=== PATIENT | male | born 1945 | race Caucasian/White ===

== ENCOUNTER 2019-01-11 12:53 | Emergency (ER) | payer MEDICARE, OTHER ==
[~2019-01-11] VITALS: Ht 180.3 cm; Wt 66.7 kg
--- OUTSIDE RECORDS SUMMARY | ~2019-01-11 | XMS | Encounter Summary ---
Demographics + + + | Address | [address] | | | [place] [address] | + + + | Home Phone | | + + + | Preferred Language | Unknown | + + + | Marital Status | | + + + | Spiritism Affiliation | Unknown | + + + | Race | Unknown | + + + | Ethnic Group | Unknown | + + + Author + + + | Author | [facility] | | | and Jaironana | + + + | Organization | [facility] | | | and [place] | + + + | Address | Unknown | + + + | Phone | Unavailable | + + + Support + + +---------+ + | Name | Relationship | Address | Phone | + + +---------+ + | Message Detailed | ECON | Unknown | | + + +---------+ + Care Team Providers + +------+ + | Care Piano Refinisher Name | Role | Phone | + +------+ + PCP | Unavailable | + +------+ + Encounter Details +--------+ + + + + | Date | Type | Department | Care Team | Description | +--------+ + + + + | 12/23/ | Hospital | [facility] [place] IP | Conversion | Pain | | 2015 | Encounter | CONVERSION DEP [address] | Transaction, | | | | | [address] | Provider Unknown | | | | | [place] | | | | | | [phone] | (Fax) | | | | | [phone] | | | +--------+ + + + + Social History + +-------+ +--------+------+ | Tobacco Use | Types | Packs/Day | Years | Date | | | | | Used | | + +-------+ +--------+------+ | Never Assessed | | | | | + +-------+ +--------+------+ + + + | Sex Assigned at | Date Recorded | | | | + + + | Not on file | | + + + + + + + | Job Start Date | Occupation | Industry | + + + + | Not on file | Not on file | Not on file | + + + + + + + + | Travel History | Travel Start | Travel End | + + + + + + | No recent travel history available. | + + documented as of this encounter Plan of Treatment Not on filedocumented as of this encounter Procedures + +--------+ + + + | Procedure Name | Priori | Date/Time | Associated Diagnosis | Comments | | | ty | | | | + +--------+ + + + | MRI LUMBAR SPINE WO | Routin | 12/16/2014 | | Results for this | | CONTRAST | e | 10:18 PM | | procedure are in the | | | | PST | | results section. | + +--------+ + + + documented in this encounter Results MRI Lumbar Spine wo Contrast (12/16/2014 10:18 PM PST) + + | Specimen | + + | | + + + + + | Narrative | Performed At | + + + | This is a non-reportable procedure without a radiologist report and | | | is used for image storage only | | + + + + + | Procedure Note | + + | Telly De Loc - 09/27/2018 11:27 AM PDT This is a non-reportable procedure | | without a radiologist report and isused for image storage only | + + documented in this encounter Visit Diagnoses + + | Diagnosis | + + | Pain Generalized pain | + + documented in this encounter"
--- OUTSIDE RECORDS SUMMARY | ~2019-01-11 | XMS | Encounter Summary ---
Demographics + + + | Address | [address] | | | [place] [address] | + + + | Home Phone | | + + + | Preferred Language | Unknown | + + + | Marital Status | | + + + | Baptism Affiliation | Unknown | + + + | Race | Unknown | + + + | Ethnic Group | Unknown | + + + Author + + + | Author | [facility] | | | and Jaironana | + + + | Organization | [facility] | | | and Jaironana [...] Team Providers + +------+ + | Care Locomotive Firer/Fireman Name | Role | Phone | + +------+ + PCP | Unavailable | + +------+ + Encounter Details +--------+ + + + + | Date | Type | Department | Care Team | Description | +--------+ + + + + | 12/23/ | Hospital | [facility] GENER[facility] IP | Conversion | Pain | | 2015 | Encounter | CONVERSION DEP 888 | Transaction, | | | | | [address] | Provider Unknown | | | | | [place] | | | | | | [phone] | (Fax) | | | | | [phone] | | | +--------+ + + + [...]
--- OUTSIDE RECORDS SUMMARY | ~2019-01-11 | XMS | Clinical Summary ---
Demographics + + + | Address | [address] | | | [place] [address] | + + + | Home Phone | | + + + | Preferred Language | Unknown | + + + | Marital Status | | + + + | Latter-Day Affiliation | Unknown | + + + | Race | Unknown | + + + | Ethnic Group | Unknown | + + + Author + + + | Author | [facility] | | | and Jaironana | + + + | Organization | [facility] | | | and Jaironana | [...] Team Providers + +------+ + | Care Hyperion Administrator Name | Role | Phone | + +------+ + | Bong Hernández MD | PCP | | + +------+ + Allergies Not on File Medications Not on file Active Problems Not on file Social History + +-------+ +--------+------+ | Tobacco Use | Types | Packs/Day | Years | Date | | | | | Used | | + +-------+ +--------+------+ | Current Every Day | | | | | | Smoker | | | | | + +-------+ [...] recent travel history available. | + + Last Filed Vital Signs Not on file Plan of Treatment + + + + + | Health Maintenance | Due Date | Last Done | Comments | + + + + + | Vaccine: | | | | | Dtap/Tdap/Td (1 - | 4 | | | | Tdap) | | | | + + + + + | Vaccine: Zoster (1 | | | | | of 2) | 5 | | | + + + + + | Vaccine: | | | | | Pneumococcal 65+ (1 | 0 | | | | of 2 - PCV13) | | | | + + + + + | Vaccine: Influenza | | | | | (#1) | 9 | | | + + + + + Results Not on filefrom Last 3 Months"
--- OUTSIDE RECORDS SUMMARY | ~2019-01-11 | XMS | Clinical Summary ---
Demographics + + + | Address | [address] | | | [place] [address] | + + + | Home Phone | | + + + | Preferred Language | Unknown | + + + | Marital Status | | + + + | Mu-Ism Affiliation | Unknown | + + + | Race | Unknown | + + + | Ethnic Group | Unknown | + + + Author + + + | Author | [facility] [employer] (Historical as of | | | 09-28-18) | + + + | Organization | [facility] [employer] (Historical as of | | | 09-28-18) | + + + | Address | Unknown | + + + | Phone | Unavailable | + + + Support + + +---------+ + | Name | Relationship | Address | Phone | + + +---------+ + | Detailed,Message | ECON | Unknown | | + + +---------+ + | Layne Rivero | ECON | Unknown | | + + +---------+ + Care Team Providers + +------+ + | Care Clinical Physician Assistant Name | Role | Phone | + +------+ + | Bong Hernández MD | PP | | + +------+ + Allergies No Known Allergies Current Medications + + +-------+---------+------+------+-------+ | Prescription | Sig. | Disp. | Refills | Star | End | Statu | | | | | | t | Date | s | | | | | | Date | | | + + +-------+---------+------+------+-------+ | gabapentin | Take 100 mg by mouth | | | | | Activ | | (NEURONTIN) 100 MG | 2 (two) times | | | | | e | | capsule | daily. | | | | | | + + +-------+---------+------+------+-------+ | | Take 1 tablet by | | | | | Activ | | HYDROcodone-acetamin | mouth every 6 (six) | | | | | e | | ophen (NORCO) 10-325 | hours as needed for | | | | | | | MG per tablet | Pain. | | | | | | + + +-------+---------+------+------+-------+ Active Problems No known active problems Social History + +-------+ +--------+------+ | Tobacco Use | Types | Packs/Day | Years | Date | | | | | Used | | + +-------+ +--------+------+ | Current Every Day | | | | | | Smoker | | | | | + +-------+ +--------+------+ + + +---------+ + | Alcohol Use | Drinks/We | oz/Week | Comments | | | ek | | | + + +---------+ + | Yes | 0 | 0.0 | | | | Standard | | | | | drinks or | | | | | | | | | | equivalen | | | | | t | | | + + +---------+ + + + + | Sex Assigned at | Date Recorded | | | | + + + | Not on file | | + + + Last Filed Vital Signs + + + + | Vital Sign | Reading | Time Taken | + + + + | Blood Pressure | 155/87 | 01/14/2015 7:35 AM PST | + + + + | Pulse | 69 | 01/14/2015 7:35 AM PST | + + + + | Temperature | - | - | + + + + | Respiratory Rate | - | - | + + + + | Oxygen Saturation | 97% | 01/14/2015 7:35 AM PST | + + + + | Inhaled Oxygen | - | - | | Concentration | | | + + + + | Weight | 72.6 kg (160 lb) | 01/14/2015 7:35 AM PST | + + + + | Height | 180.3 cm (5' 11") | 01/14/2015 7:35 AM PST | + + + + | Body Mass Index | 22.32 | 01/14/2015 7:35 AM PST | + + + + Plan of Treatment + + + + [...] | | | | | Pneumococcal 65+ | 0 | | | | Low/Medium Risk (1 | | | | | of 2 - PCV13) | | | | + + + + + | Vaccine: Influenza | | | | | (#1) | 9 | | | + + + + + Results Not on filefrom Last 3 Months Insurance + +--------+ +------+-------+ + | Payer | Benefi | Subscriber | Type | Phone | Address | | | t Plan | ID | | | | | | / | | | | | | | Group | | | | | + +--------+ +------+-------+ + | MEDICARE | MEDICA | [id number] | | | [address] | | | RE | | | | [place] [id number] | | | IP-OP | | | | | + +--------+ +------+-------+ + + +--------+ +--------+ + + | Guarantor Name | Accoun | Relation to | Date | Phone | Billing Address | | | t Type | Patient | of | | | | | | | | | | + +--------+ +--------+ + + | CECILIO RIVERO | Person | Self | [birth year] | Home: | [address] | | | al/Fam | | 1946 | [phone] | [place] [address] | | | katia | | | [phone] | | + +--------+ +--------+ + +
--- OUTSIDE RECORDS SUMMARY | ~2019-01-11 | XMS | Clinical Summary ---
Demographics + + + | Address | [address] | | | [place] [address] | + + + | Home Phone | | + + + | Preferred Language | Unknown | + + + | Marital Status | | + + + | Evangelical Affiliation | Unknown | + + + | Race | Unknown | + + + | Ethnic Group | Unknown | + + + Author + + + | Author | [facility] [employer] (Historical as of | | | 09-28-18) | + + + | Organization | [facility] [employer] (Historical as of | | | 09-28-18) [...] Team Providers + +------+ + | Care Nursery Teacher Name | Role | Phone | + [...] +------+-------+ + | MEDICARE | MEDICA | [id number] | | | [address] | | | RE | | | | [place] [phone] | | | IP-OP | | | [...] Self | [birth year] | Home: | [address] | | | al/Fam | | 1946 | [phone] | [place] [address] | | | katia | | | [phone] | | + +--------+ +--------+ + +
--- OUTSIDE RECORDS SUMMARY | ~2019-01-11 | XMS | Clinical Summary ---
Demographics + + + | Address | [address] | | | [place] [address] | + + + | Home Phone | | + + + | Preferred Language | Unknown | + + + | Marital Status | | + + + | Nondenominational Affiliation | Unknown | + + + | Race | Unknown | + + + | Ethnic Group | Unknown | + + + Author + + + | Author | [facility] | | | and Jaironana | + + + | Organization | [facility] | | | and Jair[place]ana | [...] Team Providers + +------+ + | Care Retail Chain Store Area Supervisor Name | Role | Phone | + [...]
== END 2019-01-11 17:43 | disposition home or self-care (01) ==
LOC: ED 12:53
DX: K57.30 Diverticulosis of large intestine without perforation or abscess without bleeding (principal); R63.4 Abnormal weight loss; F17.200 Nicotine dependence, unspecified, uncomplicated; Z88.0 Allergy status to penicillin
CPT/HCPCS: 74177; 80053; 81001; 83690; 85025; 99284-25; Q9967

== ENCOUNTER 2019-02-13 06:00 | Day surgery (SDC) | payer MEDICARE, OTHER ==
[~2019-02-13] VITALS: Ht 182.9 cm; Wt 66.2 kg
--- NOTE | 2019-02-13 08:04 | NUR ---
02/13/19 0804 Paula Navarro 0800-PATIENT ARRIVED TO PACU ON 2L NC RR EVEN. PATIENT LAYING LEFT LATERAL. ABDOMEN SOFT OPENS EYES TO VERBAL STIMULI VERY DROWSY. IVF INFUSING.
--- NOTE | 2019-02-13 08:45 | OR ---
[facility] [address] [place], [place] [address] Signed DATE OF OPERATION: 02/13/2019 SURGEON: Susy Levin MD PREOPERATIVE DIAGNOSES: 1. Unspecified mass, splenic flexure/descending colon. 2. Diverticulosis. POSTOPERATIVE DIAGNOSES: 1. 5 mm polyp at 70 cm. 2. 4 mm polypoid lesion at 50 cm. 3. 3 mm polyp at 18 cm (rectosigmoid junction). 4. 3 mm polyp at 15 cm. 5. Moderate martin-diverticulosis. PROCEDURE: Colonoscopy with hot biopsy. ESTIMATED BLOOD LOSS: None. INDICATIONS: Cecilio is a 73-year-old gentleman, asked to see me for a followup colonoscopy. He said he had a colonoscopy over 10 years ago. More recently, he had a CT scan of the abdomen and pelvis for periumbilical abdominal pain. It showed his diverticulosis along with some thickening in the splenic flexure and proximal descending colon. Consequently, he was asked to see me for a colonoscopy. He gives no family history of colon cancer or polyps. In the office, I gave Bhavesh pamphlet on colonoscopy. We looked at that together along with the risks including, but not limited to gas, bloating, crampy abdominal pain, bleeding, perforation requiring surgery, and missed diagnosis. We also discussed the need for IV conscious sedation. He had expressed understanding and wished to proceed. PROCEDURE NOTE: Cecilio was taken into our endoscopy suite and placed in the left lateral decubitus position. He was given a total of 7 mg of Versed and 125 mcg of fentanyl to cover the case. A digital rectal exam was performed and he has a slightly enlarged but moderately indurated prostate gland. No dominant nodules. No external hemorrhoids. The adult colonoscope was introduced and advanced under direct visualization of camera into the cecum itself without difficulty. Unfortunately, his prep was moderate. He had several Electronically Signed By: SUSY LEVIN MD 02/13/19 0845 PATIENT NAME: CECILIO RIVERO OPERATIVE REPORT DATE OF : 43 REPORT #: [id number] PHYSICIAN: SUSY LEVIN MD PCP: WILFRIDO ESCAMILLA DO REPORT IS CONFIDENTIAL AND NOT TO BE RELEASED WITHOUT AUTHORIZATION [facility] [address] [place], [place] [address] Signed areas of thick particulate stool matter that I could not suction out completely. The scope was then slowly withdrawn. We could easily see the appendiceal orifice and the ileocecal valve. We had taken pictures throughout for photodocumentation. He does have diverticula throughout the colon. They were moderate in size, moderate in number, and scattered about. The above-mentioned polyps were easily removed with the help of hot biopsy forceps. The scope had been retroflexed in the rectum and he has no internal hemorrhoids. After this, the gas was suctioned out and the colonoscope removed. Wes tolerated the procedure quite well. RECOMMENDATIONS: Cecilio will follow up in my office in 7 to 14 days to review his results. Due to his bowel prep, he might consider a shorter interval for the followup colonoscopy and he might consider doubling the bowel prep. In addition, he is going to be coming back for dilation of esophageal stricture. uSsy Levin MD ALB/MODL /[id number] cc: MD Wilfrido Sanders DO Copies: SUSY LEVIN MD, ARIAN DO ~ Electronically Signed By: SUSY LEVIN MD 02/13/19 0845 PATIENT NAME: CECIILO RIVERO OPERATIVE REPORT DATE OF : 43 REPORT #: [id number] PHYSICIAN: SUSY LEVIN MD PCP: WILFRIDO ESCAMILLA DO REPORT IS CONFIDENTIAL AND NOT TO BE RELEASED WITHOUT AUTHORIZATION
--- NOTE | 2019-02-13 14:24 | NUR ---
PB CUENCA INFORMED ME THAT PT HAD REQUESTED TO SLEEP UNTIL HIS SCOPE. WILL HONOR PTS' WISH. WILL FOLLOW NEEDED
--- NOTE | 2019-02-14 14:47 | PATH ---
[facility] [address] [place], [place] [address] Signed SPECIMEN(S): A COLON POLYP AT 70 CM SPECIMEN(S): B COLON POLYP AT 50 CM SPECIMEN(S): C COLON POLYP AT 18 CM SPECIMEN(S): D COLON POLYP AT 15 CM SPECIMEN SOURCE: A. COLON POLYP AT 70 CM B. COLON POLYP AT 50 CM C. COLON POLYP AT 18 CM D. COLON POLYP AT 15 CM CLINICAL HISTORY: Pre: Abdominal pain, weight loss, diverticulosis. Post: Colon/rectal polyps, diverticulosis. MICROSCOPIC DESCRIPTION: Histologic sections of all submitted blocks are examined by light microscopy. These findings, together with the gross examination, support the pathologic diagnosis. FINAL PATHOLOGIC DIAGNOSIS: A. Colon, polyp at 70 cm, polypectomy: - Fragments of tubular adenoma. - Negative for high-grade dysplasia or malignancy. B. Colon, polyp at 50 cm, polypectomy: - Tubular adenoma. - Negative for high-grade dysplasia or malignancy. C. Colon, polyp at 18 cm, polypectomy: - Colonic mucosa with no histopathologic abnormality. - Negative for dysplasia or malignancy. D. Colon, polyp at 15 cm, polypectomy: - Hyperplastic polyp. - Negative for dysplasia or malignancy. NAL:glc:C2NR GROSS DESCRIPTION: Four specimens are received in four containers, labeled "MD." A. The specimen, labeled "MD, colon polyp at 70 cm," is received in formalin and consists of two pink-culp soft tissue fragment(s) that measure 0.2-0.3 cm in greatest dimension. The specimen is entirely submitted in cassette (A1). B. The specimen, labeled "MD, colon polyp at 50 cm," is received in formalin PATIENT NAME: SAM RIVERO PATHOLOGY DATE OF : 43 REPORT #: [id number] PHYSICIAN: NADJA PATHOLOGY PCP: MADISON ESCAMILLA DO REPORT IS CONFIDENTIAL AND NOT TO BE RELEASED WITHOUT AUTHORIZATION [facility] [address] [place], [place] [address] Signed and consists of one pink-culp soft tissue fragment that measures 0.1 cm in greatest dimension. The specimen is entirely submitted in cassette (B1). C. The specimen, labeled "MD, colon polyp at 18 cm," is received in formalin and consists of one pink-culp soft tissue fragment that measures 0.2 cm in greatest dimension. The specimen is entirely submitted in cassette (C1). D. The specimen, labeled "MD, colon polyp at 15 cm," is received in formalin and consists of one pink-culp soft tissue fragment that measures 0.1 cm in greatest dimension. The specimen is entirely submitted in cassette (D1). JS (under the direct supervision of a pathologist) The Gross Description was prepared using a voice recognition system. The report was reviewed for accuracy; however, sound-alike word errors, addition and/or deletions may occur. If there is any question about this report, please contact Client Services. PERFORMING LABORATORY: The technical component was performed by [facility] [address] ([employer]ophead Trimmer [employer] Wrapper: Mary Bell MD; CLIA# [id number]). [facility] [address] [address] ([employer] Trimmer [employer] Wrapper: Ángel Dixon MD; CLIA# [id number]). Diagnostician: Lea Marquis MD Pathologist Electronically Signed 02/14/2019 Copies: ~ PATIENT NAME: SAM RIVERO PATHOLOGY DATE OF : 43 REPORT #: [id number] PHYSICIAN: NADJA FORRESTER PCP: MADISON ESCAMILLA DO REPORT IS CONFIDENTIAL AND NOT TO BE RELEASED WITHOUT AUTHORIZATION
== END 2019-02-13 08:45 | disposition home or self-care (01) ==
LOC: OPS 06:00 → DS 06:00 → OPS 07:30 → DS 08:30 → OPS 08:30
PROVIDERS: Colon & Rectal Surgery
PROC: 0DBE8ZZ Excision of Large Intestine, Via Natural or Artificial Opening Endoscopic (ICD-10-PCS; principal; 2019-02-13 07:30)
DX: D12.6 Benign neoplasm of colon, unspecified (principal); K63.5 Polyp of colon; K57.30 Diverticulosis of large intestine without perforation or abscess without bleeding; N42.89 Other specified disorders of prostate; F17.210 Nicotine dependence, cigarettes, uncomplicated; F17.220 Nicotine dependence, chewing tobacco, uncomplicated; Z88.0 Allergy status to penicillin; Z98.890 Other specified postprocedural states
CPT/HCPCS: 99153; G0500; J2250; J3010; J7121

== ENCOUNTER 2019-02-26 06:20 | Day surgery (SDC) | payer MEDICARE, OTHER ==
[~2019-02-26] VITALS: Ht 182.9 cm; Wt 66.7 kg
[~2019-02-26 06:20] MED LIST: OMEPRAZOLE20 MG PO
--- NOTE | 2019-02-26 08:01 | NUR ---
02/26/19 0801 Paula Navarro 0752-PATIENT ARRIVED TO PACU ON 10L MASK RN DOING JAW THRUST TO MAINTAIN OPEN AIRWAY. ORAL AIRWAY IN PLACE PATIENT NONAROUSABLE. SR. NO DRAINAGE NOTED. ABDOMEN SOFT. IVF INFUSING. 0755-RN HOLDING AIRWAY PATIENT MOVING RIGHT KNEE EYES CLOSED. NOT FOLLOWING COMMANDS 0800-PATIENT COUGHING EYES CLOSED. ORAL AIRWAY REMOVED. MAINTAINING OWN AIRWAY. MOVING LEGS.
--- NOTE | 2019-02-26 08:43 | NUR ---
PT IS BACK TO DS FROM PACU. HE IS AWAKE, BUT FEELING LOOPY/GROGGY. HE IS TOLERATING SIPS OF WATER. DC CRITERIA REVIEWED. NO ADDITIONAL NEEDS AT THIS TIME. CALL LIGHT WITHIN REACH.
--- NOTE | 2019-02-26 09:48 | NUR ---
PT MEETS DC CRITERIA. HE IS HELPED UP TO BATHROOM. HE IS ABLE TO VOID QS. HE INDICATES THAT HE WOULD LIKE TO GO HOME. HE IS GIVEN VERBAL DC INSTRUCTIONS, HE VERBALIZES UNDERSTANDING. QUESTIONS ARE ASKED AND ANSWERED. PT IS TRANSFERS HIMSELF FROM WC TO CAR.
--- NOTE | 2019-02-26 12:40 | OR ---
[facility] [address] [place], [place] [address] Signed DATE OF OPERATION: 02/26/2019 SURGEON: Susy Levin MD PREOPERATIVE DIAGNOSES: 1. Status post Hill repair/fundoplication. 2. Distal esophageal stricture (5 mm). POSTOPERATIVE DIAGNOSES: 1. Status post Hill repair/fundoplication. 2. Distal esophageal stricture (5 mm). PROCEDURE: EGD with serial dilations at 6, 7, and 8 mm (-Turkish). ESTIMATED BLOOD LOSS: Minimal. INDICATIONS: Cecilio is a 73-year-old gentleman, who underwent Hill fundoplication back in 2007. Unfortunately, it is strictured. He said he had it dilated 2 or 3 times in the past. More recently, he has been having a lot of trouble with food getting caught in his distal esophagus. He said he is basically down to liquids and soft eggs. He had been down to [place] at the end in December 2018 and had it dilated from 5 mm up to about 10 mm. It was just enough to get the camera through. Multiple biopsies were taken at that time of the stricture and they all came back benign. However, [place] is 3 hours from here and so his endoscopist asked if I could perform serial dilations for Cecilio over 6-8 weeks and see if we can dilate this up closer to 16-18 mm and get it to stay open. If not, he may need a resection of that area. In the meantime, Cecilio is quite thin with a body mass index of 20. Nevertheless, he does remain active driving semi-truck. Consequently, he delayed his followup dilation until today. I met with Cecilio in the office and I reviewed with him the above findings. I reviewed with him upper endoscopy in detail and gave him a pamphlet. He understands there is risk to dilation including but not limited to gas bloating, crampy abdominal pain, bleeding, perforation requiring surgery, and missed diagnosis. Also, these are quite stimulating and there is need to protect the airway, so we will go and have an anesthesia provider help us with monitored anesthesia along with propofol infusion. He had expressed understanding and wished to proceed. PROCEDURE NOTE: Electronically Signed By: SUSY LEVIN MD 02/26/19 1240 PATIENT NAME: CECILIO RIVERO OPERATIVE REPORT DATE OF : 43 REPORT #: [id number] PHYSICIAN: SUSY LEVIN MD PCP: MADISON ESCAMILLA DO REPORT IS CONFIDENTIAL AND NOT TO BE RELEASED WITHOUT AUTHORIZATION [facility] [address] [place], [place] [address] Signed Cecilio was taken into our endoscopy suite and placed in the supine semi-recumbent position. He was placed under general endotracheal tube anesthesia by our nurse route relief driver. After this, the adult gastroscope was introduced and advanced down to the distal esophagus where we easily saw the stricture. It appears to be about 5 mm. It is 43-44 cm from the incisors. It took just a minute to pass the wire down through the stricture and out into the stomach to the antrum. We started with a 6 mm dilator and we passed that through. We then re-examined the area of the GE junction and we found that it cracked slightly and just a minimal amount of blood. We went ahead and did this with our 7 mm and 8 mm dilators. Certainly with the 8 mm dilator, I could feel a little resistance as the dilator went through the stricture. We passed the dilator all the way up to slightly beyond 50 cm. Each time, we re-examined the GE junction. Again, each time, it split front and back and there was just a little bit of blood, which is quite common. We passed the gastroscope down again and right up to the stricture. Of course, the gastroscope was 10 mm and it would not quite pass through the stricture. We felt we would stop at that point and we are going to bring him back next week and we will see if we can dilate him up beyond 10 mm, so we can pass the gastroscope through this area. Overall, Cceilio tolerated procedure quite well. RECOMMENDATIONS: Cecilio will be discharged home and he will stay on his omeprazole. He will stay on his essentially liquid diet and eggs and so forth. We will have him back next week and we will re-dilate him and see if we can get beyond 10 mm, so a gastroscope can pass into the stomach. Susy Levin MD ALB/MODL /[id number] cc: DO Pamella Shepard MD Andrew L Bower, MD Electronically Signed By: SUSY LEVIN MD 02/26/19 1240 PATIENT NAME: CECILIO RIVERO OPERATIVE REPORT DATE OF : 43 REPORT #: [id number] PHYSICIAN: SUSY LEVIN MD PCP: MADISON ESCAMILLA DO REPORT IS CONFIDENTIAL AND NOT TO BE RELEASED WITHOUT AUTHORIZATION [facility] [address] [place], [place] [address] Signed Copies: MADISON ESCAMILLA CHRISTY MD BOWER, ANDREW L MD ~ Electronically Signed By: SUSY LEVIN MD 02/26/19 1240 PATIENT NAME: CECILIO RIVERO OPERATIVE REPORT DATE OF : 43 REPORT #: [id number] PHYSICIAN: SUSY LEVIN MD PCP: MADISON ESCAMILLA DO REPORT IS CONFIDENTIAL AND NOT TO BE RELEASED WITHOUT AUTHORIZATION
== END 2019-02-26 09:35 | disposition home or self-care (01) ==
LOC: OPS 06:20 → DS 06:20 → OPS 06:45 → DS 07:30 → OPS 09:35
PROVIDERS: Colon & Rectal Surgery
PROC: 0D738ZZ Dilation of Lower Esophagus, Via Natural or Artificial Opening Endoscopic (ICD-10-PCS; principal; 2019-02-26 06:45)
DX: K22.2 Esophageal obstruction (principal); K21.9 Gastro-esophageal reflux disease without esophagitis; F17.210 Nicotine dependence, cigarettes, uncomplicated; F17.220 Nicotine dependence, chewing tobacco, uncomplicated; Z79.899 Other long term (current) drug therapy; Z98.890 Other specified postprocedural states; Z88.0 Allergy status to penicillin
CPT/HCPCS: J0330; J1100; J1885; J2405; J2704; J7121

== ENCOUNTER 2019-05-28 06:00 | Day surgery (SDC) | payer MEDICARE, OTHER ==
[~2019-05-28] VITALS: Ht 182.9 cm; Wt 77.1 kg
--- NOTE | 2019-05-28 08:18 | NUR ---
05/28/19 0818 Yudelka Huston 0808 PT ARRIVED TO PACU ON 6L VIA MASK, RESP EVEN AND UNLABORED. VSS. 0814 PT OPEN HIS EYES AND MOVING IN BED. O2 REMOVED AND PT REORIENTED TO PACU. 0817 HOB INCREASED AND PT DENIES PAIN AND NAUSEA.
--- NOTE | 2019-05-28 11:08 | OR ---
[facility] [address], [place] [address] Signed DATE OF OPERATION: 05/28/2019 SURGEON: Susy Levin MD PREOPERATIVE DIAGNOSES: 1. Heel repair/fundoplication approximately in 2007. 2. Hiatal hernia. 3. Distal esophageal stricture. POSTOPERATIVE DIAGNOSES: 1. Heel repair/fundoplication approximately in 2007. 2. Hiatal hernia. 3. Distal esophageal stricture. PROCEDURES: EGD with balloon dilation (18 mm/54-Sri Lankan). ESTIMATED BLOOD LOSS: Minimal. INDICATIONS: Cecilio is a 74-year-old gentleman who around 2007 underwent his heel repair, unfortunately it strictured and he had to have it dilated several times in the past. More recently, he was having quite a bit of trouble swallowing and had been down to see a specialist in [place]. He is now undergoing serial dilations. The stricture was down around 5 to 6 mm. We slowly dilated that his stricture over each week and we are now up to 54-Sri Lankan with our 18 mm balloon. Cecilio is slight of build with narrow palate and we could not pass anything large in a 48-Sri Lankan Trinidadian dilator. Consequently, we switched over to the balloon. Fortunately, Cecilio stricture is short maybe a cm. It is just at the top side of the hiatal hernia. In the office he thought he has been swallowing better. He even ate some chicken drumsticks and said it went through. However, the yolk of a hard boiled egg seemed to get stuck. Cecilio is quite familiar with this whole process. He understands there is risk including, but not limited to gas bloating, crampy abdominal pain, bleeding, perforation requiring surgery, and missed diagnosis. In addition, we always have an anesthesia provider help us with general endotracheal tube intubation, so we can perform his dilation and protect his airway. He had expressed understanding and wished to proceed. PROCEDURE NOTE: Cecilio was taken into one of our operating rooms and placed in the supine Electronically Signed By: SUSY LEVIN MD 05/28/19 1108 PATIENT NAME: CECILIO RIVERO OPERATIVE REPORT DATE OF : 43 REPORT #: [id number] PHYSICIAN: SUSY LEVIN MD PCP: MADISON ESCAMILLA DO REPORT IS CONFIDENTIAL AND NOT TO BE RELEASED WITHOUT AUTHORIZATION [facility] [address], [place] [address] Signed semi-recumbent position. He was placed under general endotracheal tube anesthesia. The adult gastroscope was introduced and advanced under direct visualization of the camera. Once again, I could see the stricture in his distal esophagus. The 10 mm adult gastroscope passed through with just a little bit of resistance. The remainder of his stomach was unremarkable. No additional biopsies were taken. Upon retroflexion scope of course we can see a small hiatal hernia. The hiatal hernia can actually be seen better from above. The scope was withdrawn and we inserted the 18 mm balloon and we dilated it four separate times across the stricture. Each time it was held for a full 60 seconds. On the final inflation, the balloon could pass to and fro through the stricture. The balloon was deflated and completely removed. The camera was reinserted. We can see a break in mucosa on the one side with good hemostasis. After this, the scope was slowly withdrawn and the gas was suctioned out as well. Cecilio tolerated the procedure quite well. He was weaned from his anesthesia, extubated in the OR, and taken to recovery room in stable condition. Susy Levin MD ALB/MODL /[id number] cc: MD Susy Childers MD Arian Kargar, DO Copies: JUDY OROZCO MD, ANDREW L MD KARGAR, ARIAN DO ~ Electronically Signed By: SUSY LEVIN MD 05/28/19 1108 PATIENT NAME: CECILIO RIVERO OPERATIVE REPORT DATE OF : 43 REPORT #: [id number] PHYSICIAN: SUSY LEVIN MD PCP: MADISON ESCAMILLA DO REPORT IS CONFIDENTIAL AND NOT TO BE RELEASED WITHOUT AUTHORIZATION
--- NOTE | 2019-05-28 13:18 | NUR ---
PT BACK FOR FREQUENT PROCEDURE. SEEMS TO WEATHER WELL. BELIEVES THIS WILL BE HIS LAST EGD. THANKED ME FOR STOPPING BY
== END 2019-05-28 09:25 | disposition home or self-care (01) ==
LOC: DS 06:00
PROVIDERS: Colon & Rectal Surgery
PROC: 0D758ZZ Dilation of Esophagus, Via Natural or Artificial Opening Endoscopic (ICD-10-PCS; principal; 2019-05-28 06:45)
DX: K22.2 Esophageal obstruction (principal); K44.9 Diaphragmatic hernia without obstruction or gangrene; F17.210 Nicotine dependence, cigarettes, uncomplicated; Z98.890 Other specified postprocedural states; Z88.0 Allergy status to penicillin
CPT/HCPCS: C1726; J0330; J2001; J2405; J2704; J7121

== ENCOUNTER 2020-07-31 16:05 | Observation (INO) | payer MEDICARE, OTHER ==
[~2020-07-31] VITALS: Ht 182.9 cm; Wt 67.3 kg
--- NOTE | 2020-07-31 20:00 | NUR ---
pt ARRIVED TO FLOOR, AMBULATED TO BED BY SELF. STEADY ON FEET. VITALS DONE. pt UP TO HAVE BM. CALL LIGHT WITHIN REACH.
--- NOTE | 2020-07-31 20:45 | NUR ---
ASSESSMENT DONE. pt REPORTED CHRONIC BACK PAIN, PRN TYLENOL GIVEN FOR 5/10 PAIN. IV MEDICATION GIVEN, IV FLUIDS STARTED. ORIENTED TO ROOM. CALL LIGHT WITHIN REACH. pt ALERT AND ORIENTED. WILL CALL IF HE NEEDS TO GET UP.
--- NOTE | 2020-07-31 21:55 | NUR ---
LAB DRAW DONE. PRESSURE DRESSING APPLIED.
--- NOTE | 2020-07-31 23:45 | NUR ---
PT AWAKE IN BED WATCHING TV. SBA TO BR TO VOID. SMALL AMOUNT BRIGHT RED BLOOD NOTED ON TOILET PAPER BUT NO BM. BACK TO BED, NITHIN WELL. DENIES FURTHER NEEDS. CALL LIGHT IN REACH.
--- NOTE | 2020-08-01 01:31 | NUR ---
VS AND I&O COMPLETE. ASSISTED PT TO REPOSITION IN BED. DENIES NEEDS AT THIS TIME. CALL LIGHT IN REACH.
--- NOTE | 2020-08-01 03:36 | NUR ---
CALL LIGHT ANSWERED. PT UP TO BR WITH SBA TO VOID 200 ML CLEAR YELLOW URINE. GAIT STEADY. BACK TO BED, NITHIN WELL. IVF INFUSING. TELE #6. SINUS SUSANNE, HR 50'S. DENIES FURTHER NEEDS. CALL LIGHT IN REACH.
--- NOTE | 2020-08-01 06:10 | NUR ---
CALL LIGHT ANSWERED. PT UP TO BR WITH SBA TO VOID. GAIT STEADY. SMALL AMOUNT RUST COLORED DRAINAGE NOTED ON TP. PT SITTING IN RECLINER. CLEAR LIQUIDS PROVIDED.
--- NOTE | 2020-08-01 11:47 | NUR ---
Patient assisted to restroom and back to chair; SBA. Patient denies pain, bowel tones x4 quadrants. Patient denies rectal bleeding today. Patient wanting to discharge home today. Encouraged patient to sit tight and wait for provider to make her rounds. Patient receptive to plan of care. Personal supplies and call light within reach.
[2020-08-01] MEDS ORDERED: TYLENOL EXTRA500 MG PO (12:37)
[2020-08-01] MEDS ORDERED: IBU-200200 MG PO (12:38)
[2020-08-01] MEDS ORDERED: ALKA-SELTZER H1 EACH PO (12:38)
--- NOTE | 2020-08-01 12:38 | NUR ---
MED REC COMPLETE
--- NOTE | 2020-08-01 12:42 | NUR ---
IV fluids discontinued at this time per provider order. Patient's lunch order taken and called to kitchen. Patient denies needs. Personal supplies and call light within reach.
--- NOTE | 2020-08-01 13:26 | NUR ---
Patient tolerated 100% of his lunch.
--- NOTE | 2020-08-01 15:06 | NUR ---
Tylenol 650mg po admin for reports of 5/10 lower back pain.
--- NOTE | 2020-08-01 17:20 | NUR ---
Patient in chair watching TV, A&OX4. Patient has no distress and denies needs. Personal supplies and call light within reach.
--- NOTE | 2020-08-01 19:41 | NUR ---
REPORT RECEIVED FROM DAY SHIFT RN. PT SITTING IN RECLINER ALERT AND ORIENTED. DENIES NEEDS AT THIS TIME. CHAIR ALARM IN PLACE. WHITE BOARD UPDATED. CALL LIGHT IN REACH.
--- NOTE | 2020-08-01 20:05 | NUR ---
EVENING ASSESSMENT COMPLETE. SCHEDULED MEDS ADMINISTERED PER EMAR. PT IN RECLINER DRINKING MAG CITRATE. DENIES NAUSEA. PAIN IS TOLERABLE AT THIS TIME. PT DENIES QUESTIONS OR CONCERNS. CALL LIGHT IN REACH.
--- NOTE | 2020-08-02 00:40 | NUR ---
BED ALARM SOUNDING. PT UP TO BR TO VOID. GAIT UNSTEADY AT TIMES. PT STATES "SOME TIMES THE (back) PAIN JUST GRABS ME WHEN I WALK". BACK TO BED, NITHIN WELL. REPORTS NO PAIN AT REST. DENIES FURTHER NEEDS. BED ALARM FOR SAFETY.
--- NOTE | 2020-08-02 02:42 | NUR ---
PATIENT CALLED TO USE THE BATHROOM. SBA. PATIENT IS BACK IN BED. NO OTHER NEEDS AT THIS TIME. BED ALARM ON FOR SAFETY.
--- NOTE | 2020-08-02 02:54 | NUR ---
ASSESSMENT COMPLETE. PT DENIES PAIN OR NAUSEA. REPORTS HE IS RESTING WELL. BED ALARM FOR SAFETY. CALL LIGHT IN REACH.
--- NOTE | 2020-08-02 05:45 | NUR ---
PT RESTING IN BED WITH EYES CLOSED, NAD.
--- NOTE | 2020-08-02 07:44 | NUR ---
REPROT RECIEVED. PT IN BED AWAKE. ORDERING BREAKFAST. DENIES PAIN OR NEEDS. REPROTS NO BM TODAY. CALL LIGHT IN REACH.
--- NOTE | 2020-08-02 08:41 | NUR ---
PT AWAKE IN ROOM, UP IN CHAIR. WHITE BOARD UPDATED, CALL LIGHT WITHIN REACH, NO FURTHER NEEDS AT THIS TIME.
--- NOTE | 2020-08-02 09:30 | NUR ---
SPOKE WITH PATIENT IN ROOM. PATIENT WAS UP IN CHAIR FINISHED WITH BREAKFAST. STATES HE FEELS GOOD. ONLY CONCERN IS "I HAVEN'T HAD A BM YET AND DON'T KNOW IF THERE WILL BE ANY BLOOD". PATIENT LIVES WITH WHO WILL DRIVE HIM HOME AT DISCHARGE. HAS A CANE AND CRUTCHES AT HOME HE HAS USED IN THE PAST. IS RETIRED. STILL DRIVES. DOES NOT FEEL HE IS A RISK FINACIALLY FOR AFFORDING MEDS/FOOD/UTILITIES. HE HAS HAD A COLONOSCOPY A FEW YEARS AGO. STATES HE HAD A POLYP AND POSSIBLY A HEMMOROID. PATIENT UNDERSTANDS HE MIGHT NEED TO HAVE ONE AGAIN. PATIENT HAS A PCP APPT ALREADY SET FOR August. HE PLANS TO KEEP THAT. PCP IS DR LAURA AT [facility]. WAS UNSURE ABOUT WHAT TIME IT WAS SCHEDULED AT THIS MOMENT. HE PLANS TO DISCHARGE TO HOME AND FEELS SAFE TO DO SO. NO KNOWN BARRIERS TO THAT AT THIS TIME.
--- NOTE | 2020-08-02 10:16 | NUR ---
PT UP TO BATHROOM FOR LARGE BOWEL MOVEMENT. NO VISIBLE BLOOD PRESENT. STOOL IS SOFT, LARGE AND BROWN. ASSESSMENT COMPLETED. TYLENOL ADMISNTERED FOR CHRONIC BACK PAIN. PT ATE WELL. NO N/V. NO OTHER PAINS. CALL LIGHT IN REACH. DENIES NEEDS.
--- NOTE | 2020-08-02 13:39 | NUR ---
DISCHARGE ISNTRUCTIONS PROVIDED. PT DENIES QUESTIONS. PHARMACY DISCUSSED MEDICAITONS. IV DC'D CATH INTACT. VITALS TAKEN AND STABLE. AMBULATORY FOR [place].
== END 2020-08-02 13:30 | disposition home or self-care (01) ==
LOC: ED 16:05 → MS 16:07
PROVIDERS: ADMIT Internal Medicine; ATTEND Internal Medicine
DX: K92.2 Gastrointestinal hemorrhage, unspecified (principal); M54.9 Dorsalgia, unspecified; Z87.891 Personal history of nicotine dependence; Z87.19 Personal history of other diseases of the digestive system; Z20.822 Contact with and (suspected) exposure to COVID-19
CPT/HCPCS: 36415; 80048; 80053; 85014; 85018; 85025; 85610; 85730; 86850; 86900; 86901; 96374; 96375; 96376; 99285; C9113; C9803; G0378; J3480; U0003

== ENCOUNTER 2023-10-09 07:58 | Day surgery (SDC) | payer MEDICARE, OTHER ==
[~2023-10-09] VITALS: Ht 182.9 cm; Wt 72.7 kg
--- NOTE | 2023-10-09 07:32 | NUR ---
PT NOT AVAILABLE FOR VISIT. PROVIDED PRAYER.
[2023-10-09 07:34] VITALS: BP 153/86
[~2023-10-09 07:58] MED LIST changes: +ALKA-SELTZER H1 EACH PO; +IBLOOD GLUCOSE TEST STRIP 1 EA TEST VI PRN; +IBU-200200 MG PO; +LACTATED RINGER'S 1,000 ML IV SCH; +LIDOCAINE HCL 1% 5 ML SDV INJ ONE; +MIDAZOLAM HCL 5 MG/5 ML VIAL IV PRN; +TYLENOL EXTRA500 MG PO; +fentaNYL citrate 100 MCG/2 ML VIAL IV PRN
[2023-10-09] MEDS ORDERED: fentaNYL citrate 100 MCG/2 ML VIAL ONE (08:14)
[2023-10-09] MEDS ORDERED: MIDAZOLAM HCL 5 MG/5 ML VIAL ONE (08:14)
--- NOTE | 2023-10-09 08:50 | NUR ---
10/09/23 0850 Omayra Dixon 0848 PT TO PACU SLEEPING, PT SATING ABOVE 95% ROOM AIR
[2023-10-09 09:22] VITALS: BP 139/76
--- NOTE | 2023-10-09 11:02 | OR ---
[facility] [address], [place] [address] Signed DATE OF OPERATION: 10/09/2023 SURGEON: Susy Levin MD PREOPERATIVE DIAGNOSES: 1. Brother with colon cancer. 2. Personal history of colonic polyps in 2020 at age 73. 3. Diverticulosis. POSTOPERATIVE DIAGNOSES: 1. Extremely poor bowel prep. 2. Diverticulosis. PROCEDURE: Sigmoidoscopy without biopsy (40 cm). ESTIMATED BLOOD LOSS: None. INDICATIONS: Cecilio is a 78-year-old gentleman, asked to see me for a followup colonoscopy. I had reviewed his extensive records before he came to the office. He told me his brother ended up with colon cancer, but he could not remember how old his brother was. It is obvious Cecilio's memory has declined significantly. He struggles with significant details throughout the conversation. He had a colonoscopy in about 2006 for which he could not give me any details. I helped him in 2019 at the age of 73. At that time, the CT scan had showed some thickening in the splenic flexure and his mid descending colon when he had gone to the emergency room. Those areas turned out to be fine. He had one hyperplastic polyp and a couple of tubular adenomatous polyps removed along with his diverticulosis. He had a poor bowel prep and so we asked him to repeat this in a couple of years. In the meantime, he continues to have repair repeatedly dilated and that seems to be going well. He said he still gets some food stuck, but overall he thinks it is much better. He does not seem to have any lower GI symptoms. He said for him he eat so little that he only has a bowel movement about once a week. Amazingly, I still see Cecilio driving around town in his pickup truck. It is clear that he is having a hard time recognizing me around town. In the office, I had given him a brochure on colonoscopy. We reviewed the nature of the test. He understands there is risk including, but not limited to gas bloating, crampy abdominal pain, bleeding, perforation requiring surgery, and missed diagnosis. We went through the bowel prep in detail once again. It is a very simple bowel prep. He told the nurses Electronically Signed By: SUSY LEVIN MD 10/09/23 1102 PATIENT NAME: CECILIO RIVERO OPERATIVE REPORT DATE OF : 43 REPORT #: [id number] PHYSICIAN: SUSY LEVIN MD PCP: JUDIT LAURA MD REPORT IS CONFIDENTIAL AND NOT TO BE RELEASED WITHOUT AUTHORIZATION [facility] [address], [place] [address] Signed this morning he thought he had done excellent and that his stool was clear. He also understands the need for IV conscious sedation. He says usually his takes him home. He . He has done well with Versed and fentanyl in the past. He had expressed understanding and wished to proceed. PROCEDURE IN DETAIL: Cecilio was taken into our endoscopy suite and placed in the left lateral decubitus position. It is clear that his cognitive function has declined. He is very hard of hearing. He started to appear more and more frail. He is quite thin but he has always been thin since I have met him. We gave him just 2 mg of Versed and 50 mcg of fentanyl. A digital rectal exam was performed. No external hemorrhoids. Good sphincter tone. His prostate gland is indurated and swollen. There were no masses. There was brown stool around the anus and on the glove index finger. The adult colonoscope was introduced and we immediately encountered moderately thick liquid brown particulate filled stool matter. We advanced the scope slowly up to about 40 cm in the sigmoid colon. We saw several diverticula. We encountered a complete wall of brown liquid stool that we simply could not pass and therefore it was not safe to advance the scope any further. Consequently, the scope was slowly withdrawn. After this, the gas was suctioned out and the colonoscope removed. We had retroflexed the scope in the rectum and there was no additional pathology above the anal canal. Cecilio tolerated the procedure quite well. RECOMMENDATIONS: Cecilio can follow up my office as needed. Susy Levin MD ALB/MODL /[id number] cc: MD Judit Sanders MD Copies: SUSY LEVIN MD Electronically Signed By: SUSY LEVIN MD 10/09/23 1102 PATIENT NAME: CECILIO RIVERO OPERATIVE REPORT DATE OF : 43 REPORT #: [id number] PHYSICIAN: SUSY LEVIN MD PCP: JUDIT LAURA MD REPORT IS CONFIDENTIAL AND NOT TO BE RELEASED WITHOUT AUTHORIZATION [address] [address] Signed JUDIT LAURA DMD ~ Electronically Signed By: SUSY LEVIN MD 10/09/23 1102 PATIENT NAME: CECILIO RIVERO OPERATIVE REPORT DATE OF : 43 REPORT #: [id number] PHYSICIAN: SUSY LEVIN MD PCP: JUDIT LAURA MD REPORT IS CONFIDENTIAL AND NOT TO BE RELEASED WITHOUT AUTHORIZATION
== END 2023-10-09 18:00 | disposition home or self-care (01) ==
LOC: DS 07:58
PROVIDERS: ATTEND Colon & Rectal Surgery
PROC: 0DJD8ZZ Inspection of Lower Intestinal Tract, Via Natural or Artificial Opening Endoscopic (ICD-10-PCS; principal; 2023-10-09 08:45)
DX: K57.30 Diverticulosis of large intestine without perforation or abscess without bleeding (principal); Z86.010 Personal history of colon polyps; Z80.0 Family history of malignant neoplasm of digestive organs; K59.00 Constipation, unspecified; F17.210 Nicotine dependence, cigarettes, uncomplicated; K21.9 Gastro-esophageal reflux disease without esophagitis; Z79.899 Other long term (current) drug therapy; Z88.0 Allergy status to penicillin
CPT/HCPCS: G0500; J2250; J3010